=== PATIENT | female | born 1990 | race Caucasian/White ===

== ENCOUNTER 2020-10-16 08:20 | Inpatient (IN) | payer BC ==
[~2020-10-16] VITALS: Ht 154.9 cm; Wt 61.8 kg
[2020-10-16] MEDS ORDERED: BUSP30TA PO (08:29)
[2020-10-16] MEDS ORDERED: EFFE150C2 PO (08:29)
[2020-10-16 09:09] LABS: HEMATOCRIT 41.6 % (36.0-47.0); HEMOGLOBIN 13.7 g/dl (12.0-15.5); MEAN CORPUSCULAR HEMOGLOBIN 31.4 pg (27.0-33.0); MEAN CORPUSCULAR HGB CONC 32.9 g/dl (32.0-36.5); MEAN CORPUSCULAR VOLUME 95.2 fl (80.0-96.0); PLATELET COUNT, AUTOMATED 177 10^3/uL (150-450); RED BLOOD COUNT 4.37 10^6/uL (4.00-5.40); WHITE BLOOD COUNT 4.6 10^3/uL (4.0-10.0)
[2020-10-16 09:39] LABS: AMPHETAMINES LEVEL URINE NEGATIVE (NEGATIVE); BARBITURATES URINE NEGATIVE (NEGATIVE); BENZODIAZEPINES URINE NEGATIVE (NEGATIVE); CANNABINOIDS URINE NEGATIVE (NEGATIVE); COCAINE METABOLITE URINE NEGATIVE (NEGATIVE); METHADONE URINE NEGATIVE (NEGATIVE); OPIATES URINE NEGATIVE (NEGATIVE); PHENCYCLIDINE URINE NEGATIVE (NEGATIVE)
[2020-10-16 09:43] LABS: HCG, SERUM QUALITATIVE NEGATIVE (NEGATIVE)
[2020-10-16 09:48] LABS: ACETAMINOPHEN LEVEL < 2.0 UG/ML (10.0-30.0); ALBUMIN 4.2 GM/DL (3.2-5.2); ALT/SGPT 29 U/L (12-78); BILIRUBIN,DIRECT 0.2 MG/DL (0.0-0.2); BILIRUBIN,TOTAL 0.5 MG/DL (0.2-1.0); BLOOD UREA NITROGEN 11 MG/DL (7-18); CALCIUM LEVEL 9.3 MG/DL (8.5-10.1); CARBON DIOXIDE LEVEL 28 MEQ/L (21-32); CHLORIDE LEVEL 106 MEQ/L (98-107); CREATININE FOR GFR 0.67 MG/DL (0.55-1.30); ETHYL ALCOHOL (ETHANOL) < 0.003 % (0.000-0.010); GLOMERULAR FILTRATION RATE > 60.0 (>60); GLUCOSE, FASTING 77 MG/DL (70-100); POTASSIUM SERUM 3.8 MEQ/L (3.5-5.1); SALICYLATE LEVEL < 1.7 MG/DL (5.0-30.0); SODIUM LEVEL 139 MEQ/L (136-145); TOTAL PROTEIN 8.1 GM/DL (6.4-8.2)
[2020-10-16] MEDS ORDERED: MOM 30ML SUSPENSION UDC PO PRN (13:40)
[2020-10-16] MEDS ORDERED: traZODone 50 MG TAB PO PRN (13:40)
[2020-10-16] MEDS ORDERED: ACETAMINOPHEN TAB 650MG DOSE (2X325MG) PO PRN (13:40)
[2020-10-16] MEDS ORDERED: MAALOX 30 ML SUSP *UDC PO PRN (13:40)
[2020-10-16 14:51] LABS: RSV AMPLIFICATION NEGATIVE (NEGATIVE)
[2020-10-16] MEDS ORDERED: BUSP15TA47 PO (14:52)
[2020-10-16] MEDS ORDERED: HOME MED LIST COMPLETE! XX SCH (14:55)
[2020-10-16 16:21] VITALS: BP 100/59
[2020-10-16] MEDS: LORazepam 1 MG TAB PO PRN (18:10)
[2020-10-16] MEDS: risperiDONE 2 MG TAB PO SCH (21:16)
[2020-10-17 06:45] VITALS: BP 121/59
--- NOTE | 2020-10-17 10:18 | MHHPEPDOC ---
General Date Of Admission: Oct 16, 2020 Legal Status: 9.39 Chief Complaint I was a hearing voices telling me to "fast. I have been full of energy. ". History of Present Illness HISTORY OF THE PRESENT ILLNESS: Patient is a 30 -year-old , female, who [was diagnosed of major depression recently and has been taking antidepressant medicine of Effexor. Patient came to emergency room with her reporting that she is occasionally hearing man's voice telling her to hurry up and go fast. Patient stated that it has been going on for almost 2 months and is getting worse in the past 2 weeks. She stated that she is feeling quite positive, having increased energy ,sleeping only 3 to 4 hours at night but the voices are getting worse and she is feeling somewhat disturbed and agreed to come to the hospital for help. She denies any command hallucination and feels that the voices are from one of her uncles although she is not feeling threatened but she is disturbed and not getting much sleep and wants help. She stated that she was having significant depression but also had periods of increased energy for this past several years but only started to receive julieta atment the past few months after her depression got worse and was prescribed with Effexor which seems to have made her hallucination worse. She denies any history of suicidal attempt and denies any substance abuse issues]. Psychiatric Review of Systems Depression (2 or more weeks): insomnia/hypersomnia, decreased energy, difficulty concentrating, psychomotor changes Sharmila (4 or more days of): expansive mood, decreased need for sleep, still with energy, talkativity, pressured, goal-directed activities Psychosis: auditory hallucination PTSD: denies Anxiety: denies Past Psychiatric History Previous Psychiatric Diagnosis: . Major depression and anxiety Previous Psychiatric Admissions: . Was on Effexor Suicide Attempts: . No history of suicidal attempt Psychiatric Follow-up: . Started outpatient treatment 2 months ago Psychiatric medications: . Effexor Past Medical History Medical Problems No major medical history Head Injury: No Seizures: No Hospitalizations: No Surgeries: No Family Medical/Psychiatric HX Medical Problems Noncontributory Psychiatric Disorders: Yes (Patient's mother who 15 years ago had a OCD) Addiction: No Suicide Attemps/Completions: No Addiction History denies Social History Childhood: . Born in this area Abuse/Trauma:. Denies any history of abuse lives with her Current Living Situation: [With her ]. Education: [High school]. Employment: [Works at [employer]]. Social Support: []. Legal: [No legal history]. Marital: 1 month ago no child . Mental Status Examination General Appearance: appears stated age Build: average Demeanor: average Eye Contact: average Activity: average Behavior: cooperative Speech: clear, pressured, normal volume Mood: euphoric, hypomanic Mood Patient reports having full of energy but is distressed by the hallucinations Affect: full, congruent, anxious Thought Process: logical/linear, racing Thought Content (Delusions): other (No delusional thinking but hearing voices of unclear telling her to go fast) Thought Content (Other): none reported Thought Content (Aggressive): none reported Perception (Hallucinations): auditory Perception (Other): none reported Cognition (Impairment of): none reported Cognition(Intelligence Est.): average Oriented: Awake, Alert, Oriented times three Insight: fair Judgment: Fair Diagnoses Bipolar disorder type I manic A-FIB/CHADSVASC A-FIB History Current/History of A-Fib/PAF?: No Current PO Anticoag Therapy: No Age/Risk Factor Scoring CHADSVASC: CHADSVASC Response (Comments) Value Gender Risk Factor Female 1 Hx of CHF No 0 Hx of HTN No 0 Hx of Stroke/TIA/or VTE No 0 Hx of Diabetes No 0 Hx of Vascular Disease No 0 Total 1 Treatment Treatment ordered: NONE Assessment Patient appears to have a clear history of bipolar disorder in manic phase with auditory hallucination. She is willing to cooperate with the treatment and took risperidone last night and slept 9 hours and feels much better this morning. We will continue with the risperidone 2 mg at bedtime and consider mood stabilizer and continue with the supportive therapy and education. Initial Treatment Plan 1. Patient was admitted on a 9.39 status. 2. Complete history was obtained. 3. With patients permission, family will be contacted and database will be expanded. 4. Patients medication regimen will be reviewed and changed accordingly. 5. Patient will be provided with protected environment. 6. Patient will be treated with individual, group, and milieu therapies. 7. Patient will receive supportive psych-education. 8. Discharge planning will commence immediately. 9. Outpatient follow-up treatment will be strongly recommended. 10. The initial treatment plan will focus initially on: * Depression. * Risk for suicide. ESTIMATED LENGTH OF STAY: 5-7 DAYS. TIME SPENT COUNSELING AND COORDINATING INITIAL CARE: 45 minutes. Tobacco Cessation Screen If Patient is a Smoker Patient is a non-smoker N/A-No Antipsychotics Vital Signs Vital Signs Date Time Temp Pulse Resp B/P (MAP) Pulse Ox O2 Delivery O2 Flow Rate FiO2 10/17/20 06:45 98.5 114 18 121/59 (79) 96 Room Air Laboratory Data 24H Labs Laboratory Tests 2 10/16/20 13:57: Coronavirus (COVID-19)(PCR) NEGATIVE, Influenza Type A (RT-PCR) NEGATIVE, Influenza Type B (RT-PCR) NEGATIVE, Respiratory Syncytial Virus (PCR) NEGATIVE Medications Scheduled Venlafaxine HCl (Effexor Xr) 150 Mg Cap.er.24h, 150 MG PO DAILY, (Reported) Scheduled PRN Buspirone HCl (Buspirone HCl) 15 Mg Tablet, 15 MG PO BID PRN for ANXIETY, (Reported) Allergies Coded Allergies: Sulfa (Sulfonamide Antibiotics) (Verified Allergy, Intermediate, HIVES, 10/16/20) amoxicillin (Verified Allergy, Intermediate, HIVES, 10/16/20) FLAVIO MORAN M.D. Oct 17, 2020 10:18
[2020-10-17 16:33] VITALS: BP 113/62
--- NOTE | 2020-10-17 17:44 | HPEPDOC ---
[facility] Medical History & Physical Date of Admission Oct 16, 2020 Date of Service: Oct 17, 2020 History and Physical CHIEF COMPLAINT: Routine medical exam HISTORY OF PRESENT ILLNESS: 30-year-old female with prior history of depression admitted to the inpatient mental health unit with bipolar disorder and manic episode. Hospitalist was asked to do a routine medical exam. Patient denies any chest pain pressure tightness lightheadedness dizziness syncope dysuria urgency frequency flank pain fever chills polyphagia polyuria polydipsia sore throat changes in weight bowel habits sleep pattern she denies any bilateral upper or lower extremity weakness or paresthesias denies any changes in vision blurred vision diplopia decreased visual acuity sore throat ear discharge nasal congestion shortness of breath PAST MEDICAL HISTORY: Bipolar disorder Depression PAST SURGICAL HISTORY: None SOCIAL HISTORY: 1 month ago graduated from high school Works at [employer] full code denies smoking or alcohol use Urine tox screen positive for cannabinoids FAMILY HISTORY: Mother COPD/emphysema, previous tobacco smoker, OCD ALLERGIES: Please see below. REVIEW OF SYSTEMS: 10 point review of systems negative aside from positive findings in HPI HOME MEDICATIONS: Please see below. PHYSICAL EXAMINATION: VITAL SIGNS: See below GENERAL APPEARANCE: Awake alert oriented to person place and time no distress HEENT: No thyromegaly cervical lymphadenopathy moist mucous membranes CARDIOVASCULAR: S1-S2 regular rate rhythm LUNGS: Air entry is equal bilaterally clear to auscultation no wheezing rales or rhonchi ABDOMEN: Positive bowel sounds soft nontender nondistended no rebound or guarding EXTREMITIES: No cyanosis clubbing or pitting edema LABORATORY DATA: See below. ASSESSMENT: 30-year-old with history of depression admitted for bipolar disorder and manic episode with auditory hallucinations. . PLAN: Bipolar manic phase with auditory hallucinations-management per psychiatrist Hospitalist will sign off. Please re-consult for new acute medical issues Vital Signs Vital Signs Date Time Temp Pulse Resp B/P (MAP) Pulse Ox O2 Delivery O2 Flow Rate FiO2 10/17/20 06:45 98.5 114 18 121/59 (79) 96 Room Air Laboratory Data Labs 24H Laboratory Tests 2 10/16/20 13:57: Coronavirus (COVID-19)(PCR) NEGATIVE, Influenza Type A (RT-PCR) NEGATIVE, Influenza Type B (RT-PCR) NEGATIVE, Respiratory Syncytial Virus (PCR) NEGATIVE Home Medications Scheduled Venlafaxine HCl (Effexor Xr) 150 Mg Cap.er.24h, 150 MG PO DAILY Scheduled PRN Buspirone HCl (Buspirone HCl) 15 Mg Tablet, 15 MG PO BID PRN for ANXIETY Allergies Coded Allergies: Sulfa (Sulfonamide Antibiotics) (Verified Allergy, Intermediate, HIVES, 10/16/20) amoxicillin (Verified Allergy, Intermediate, HIVES, 10/16/20) A-FIB/CHADSVASC A-FIB History Current/History of A-Fib/PAF?: No Current PO Anticoag Therapy: No Age/Risk Factor Scoring CHADSVASC: CHADSVASC Response (Comments) Value Age Risk Factor Age < 65 years old 0 Gender Risk Factor Female 1 Hx of CHF No 0 Hx of HTN No 0 Hx of Stroke/TIA/or VTE No 0 Hx of Diabetes No 0 Hx of Vascular Disease No 0 Total 1 Treatment Treatment ordered: NONE BARBARA GOODSON MD Oct 17, 2020 10:45
[2020-10-17] MEDS: risperiDONE 2 MG TAB PO SCH (21:43)
[2020-10-18 05:34] VITALS: BP 128/76
--- NOTE | 2020-10-18 09:58 | MHIPNPDOC ---
[facility] Progress Note Progress Note DATE OF SERVICE: 10/18/20 Patient slept very well last night and is in no acute distress. She is tolerating risperidone with no complaint of side effect but stated that she is feeling a little drowsy this morning and was explained that drowsiness will lessen over time and is feeling relieved. She also states that she is not hearing the voices of unclear since yesterday and feeling less disturbed. She is in good control and denies any lethality issues and is willing to cooperate with the treatment. HISTORY:. VITAL SIGNS: See below. NEW TEST RESULTS:. CURRENT MEDICATIONS: See below. MENTAL STATUS EXAMINATION: Patient is a 30-year old female, who is cooperative. Speech: Is rational. Language skills are good. Thought processes including: Relevant. Thought content: Denies any new problems. Abstract reasoning, and computation:. Description of associations: Organized. Description of abnormal or psychotic thoughts: Claims that she is not hearing voices as much. Judgment: Fair. Insight fair]. Orientation: Oriented. Recent and remote memory: No impairment. Attention span and concentration: Fair. Language:. Fund of knowledge:. Mood: Moderately anxious. Affect: Appropriate slightly elevated. DIAGNOSES: 1.. Bipolar disorder manic 2.. 3.. ASSESSMENT: Tolerating medicine and showing some improvement MANAGEMENT PLAN: Continue with the risperidone and supportive therapy. TIME SPENT: 15 minutes. Vital Signs Vital Signs Date Time Temp Pulse Resp B/P (MAP) Pulse Ox O2 Delivery O2 Flow Rate FiO2 10/18/20 05:34 97.3 82 16 128/76 (93) 98 Room Air Current Medications Current Medications Medications (Trade) Dose Ordered Sig/Aracelis Route PRN Reason Start Time Stop Time Status Last Admin Dose Admin Acetaminophen (Tylenol Tab) 650 mg Q6HP PRN PO HEADACHE or MILD DISCOMFORT 10/16/20 13:40 Al Hydrox/Mg Hydrox/Simethicone (Mylanta) 30 ml Q4HP PRN PO HEARTBURN/INDIGESTION 10/16/20 13:40 Home Med (Home Med List Complete!) ASDIRECTED XX 10/16/20 14:55 10/16/20 15:02 DC Lorazepam (Ativan) 1 mg Q6HP PRN PO ANXIETY/AGITATION 10/16/20 13:40 10/16/20 18:10 Magnesium Hydroxide (Milk Of Magnesia) 30 ml DAILYPRN PRN PO CONSTIPATION 10/16/20 13:40 Risperidone (RisperDAL) 2 mg QHS PO 10/16/20 21:00 10/17/20 21:43 Trazodone HCl (Desyrel) 50 mg QHSP PRN PO INSOMNIA 10/16/20 13:40 Allergies Coded Allergies: Sulfa (Sulfonamide Antibiotics) (Verified Allergy, Intermediate, HIVES, 10/16/20) amoxicillin (Verified Allergy, Intermediate, HIVES, 10/16/20) FLAVIO MORAN M.D. Oct 18, 2020 09:58
[2020-10-18 16:30] VITALS: BP 126/80
[2020-10-18] MEDS: risperiDONE 2 MG TAB PO SCH (21:25)
[2020-10-19 07:37] VITALS: BP 133/76
[2020-10-19] MEDS: LORazepam 1 MG TAB PO PRN (12:35)
[2020-10-19] MEDS ORDERED: RISP-9 PO (13:03)
--- NOTE | 2020-10-19 15:08 | MHIPNPDOC ---
[facility] Progress Note Progress Note DATE OF SERVICE: 10/19/20 HISTORY: Patient is a 30 -year-old , female, who [was diagnosed of major depression recently and has been taking antidepressant medicine of Effexor. Patient came to emergency room with her reporting that she is occasionally hearing man's voice telling her to hurry up and go fast. Patient stated that it has been going on for almost 2 months and is getting worse in the past 2 weeks. She stated that she is feeling quite positive, having increased energy ,sleeping only 3 to 4 hours at night but the voices are getting worse and she is feeling somewhat disturbed and agreed to come to the hospital for help. She denies any command hallucination and feels that the voices are from one of her uncles although she is not feeling threatened but she is disturbed and not getting much sleep and wants help. She stated that she was having significant depression but also had periods of increased energy for this past several years but only started to receive treatment the past few months after her depression got worse and was prescribed with Effexor which seems to have made her hallucination worse. She denies any history of suicidal attempt and denies any substance abuse issues]. VITAL SIGNS: See below. CURRENT MEDICATIONS: See below. MENTAL STATUS EXAMINATION: Patient is a 30 -year-old , female, who was reporting auditory hallucinations and hypomanic behaviors Speech: Is fluid, conversant, normal rate, tone and volume Language skills are intact Thought processes including: linear and goal oriented Thought content: denies depression and anxiety. Denies suicidal/homicidal ideation, planning or intent. Abstract reasoning, and computation: fair Description of associations: denies, none observed Description of abnormal or psychotic thoughts: denies, none observed. Judgment: fair Insight: fair Orientation: alert and oriented to person, place, time and situation Recent and remote memory: intact Attention span and concentration: good Language: expansive Fund of knowledge: average Mood: Euthymic Mood Affect: reactive DIAGNOSES: Bipolar disorder type I manic ASSESSMENT: Patient reports that she was having a hypomanic episode with auditory hallucinations. In today's meeting, she reports no edwige, hypomanic, no depression or anxiety, no suicidal or homicidal ideations, planning or intent. She feels that the increase in Effexor was recently increased to 150 mg. As patient is not observed to have any abnormal psychotic symptoms and is not suicidal or homicidal, she will be discharged tomorrow. I have discussed with her the possibility of a mood stabilizer which requires further observation, she declined to be converted to voluntary status for this medication and wants to be discharged to home. MANAGEMENT PLAN: Continue all medications and supportive therapy, discharge tomorrow TIME SPENT: 25 minutes. Vital Signs Vital Signs Date Time Temp Pulse Resp B/P (MAP) Pulse Ox O2 Delivery O2 Flow Rate FiO2 10/19/20 07:37 98.8 104 16 133/76 (95) 100 Room Air Current Medications Current Medications Medications (Trade) Dose Ordered Sig/Aracelis Route PRN Reason Start Time Stop Time Status Last Admin Dose Admin Acetaminophen (Tylenol Tab) 650 mg Q6HP PRN PO HEADACHE or MILD DISCOMFORT 10/16/20 13:40 Al Hydrox/Mg Hydrox/Simethicone (Mylanta) 30 ml Q4HP PRN PO HEARTBURN/INDIGESTION 10/16/20 13:40 10/18/20 17:49 Home Med (Home Med List Complete!) ASDIRECTED XX 10/16/20 14:55 10/16/20 15:02 DC Lorazepam (Ativan) 1 mg Q6HP PRN PO ANXIETY/AGITATION 10/16/20 13:40 10/19/20 12:35 Magnesium Hydroxide (Milk Of Magnesia) 30 ml DAILYPRN PRN PO CONSTIPATION 10/16/20 13:40 Risperidone (RisperDAL) 2 mg QHS PO 10/16/20 21:00 10/18/20 21:25 Trazodone HCl (Desyrel) 50 mg QHSP PRN PO INSOMNIA 10/16/20 13:40 Allergies Coded Allergies: Sulfa (Sulfonamide Antibiotics) (Verified Allergy, Intermediate, HIVES, 10/16/20) amoxicillin (Verified Allergy, Intermediate, HIVES, 10/16/20) NARCISO JOHNSON NP Oct 19, 2020 15:08
[2020-10-19 16:24] VITALS: BP 119/66
[2020-10-19] MEDS: risperiDONE 2 MG TAB PO SCH (22:01)
[2020-10-20 07:00] VITALS: BP 137/74
[2020-10-20 07:34] LABS: CHOLESTEROL RISK RATIO 2.712 (<5)
--- NOTE | 2020-10-20 12:20 | MHDSPDOC ---
[facility] [place] Discharge Summary DATE OF ADMISSION: Oct 16, 2020 at 13:38 DATE OF DISCHARGE: Oct 20, 2020 at 10:56 DISCHARGE DIAGNOSES: Bipolar disorder type I manic REASON FOR ADMISSION: Patient is a 30 -year-old , , female, who [was diagnosed of major depression recently and has been taking antidepressant medicine of Effexor. Patient came to emergency room with her reporting that she is occasionally hearing man's voice telling her to hurry up and go fast. Patient stated that it has been going on for almost 2 months and is getting worse in the past 2 weeks. She stated that she is feeling quite positive, having increased energy ,sleeping only 3 to 4 hours at night but the voices are getting worse and she is feeling somewhat disturbed and agreed to come to the hospital for help. She denies any command hallucination and feels that the voices are from one of her uncles although she is not feeling thre atened but she is disturbed and not getting much sleep and wants help. She stated that she was having significant depression but also had periods of increased energy for this past several years but only started to receive treatment the past few months after her depression got worse and was prescribed with Effexor which seems to have made her hallucination worse. She denies any history of suicidal attempt and denies any substance abuse issues]. VITAL SIGNS: See below. CONSULTANTS INVOLVED: See Medical H + P by Hospitalist TREATMENT AND PROGRESS ON THE UNIT: Patient was admitted to the [facility] on a 9.39 legal status he was afforded the following treatment modalities: 1) Individual Therapy 2) Group Therapy 3) Medication Management 4) Milieu Therapy 5) Safe Environment HOSPITAL COURSE: Patient was admitted to [facility] on a 9.39 legal status. She was started on risperidone 2 mg at bedtime and there was a consideration to add a mood stabilizer along with providing supportive therapy and education. Pt found medications beneficial and tolerated them well. Mood, anxiety, and intrusive thoughts improved with treatment. Pt attended groups daily during stay. Pts symptoms improved with treatment. On day of discharge she denied depression, anxiety, insomnia, SI/HI, hallucinations, delusions. Pt was discharged home with follow-[facility]. Pt felt safe for discharge. She feels that the increase in Effexor was to 150 mg made her manic. This was discontinued on discharge. As patient is not observed to have any abnormal psychotic symptoms and is not suicidal or homicidal, she is discharged today. I have discussed again with the pt needing a mood stabilizer which requires further observation, she declined to be converted to voluntary status for this medication and wants to be discharged to home. DISCHARGE ASSESSMENT: In today's interview, patient is alert and oriented, pts dress is appropriate. Hygiene and grooming is well-kempt. Smiles on approach and is pleasant and en gaged in the interview. Denies depression and anxiety. Denies suicidal and homicidal ideation, planning or intent. Denies and is not observed with edwige, psychotic symptoms of delusions, bizarre thinking, obsessions, paranoia, ruminations illogical thoughts, flight of ideas or having poor insight and judgement. Patient has normal mentation, declines further hospitalization on a voluntary status and meets criteria for discharge today. Patient encouraged to return to hospital if symptoms worsen or change and encouraged to call unit if he/she/they needs to speak to provider for questions regarding medications or care. MENTAL STATUS EXAMINATION ON DISCHARGE: Patient is a 30 -year-old , , female, who [was diagnosed of major depression recently and has been taking antidepressant medicine of Effexor and now reporting manic behaviors and complaining of auditory hallucinations Speech: Is fluid, conversant, normal rate, tone and volume Language skills are intact Thought processes including: linear and goal oriented Thought content: denies depression and anxiety. Denies suicidal/homicidal ideation, planning or intent. Abstract reasoning, and computation: fair Description of associations: denies, none observed Description of abnormal or psychotic thoughts: denies, none observed. Judgment: fair Insight: fair Orientation: alert and oriented to person, place, time and situation Recent and remote memory: intact Attention span and concentration: good Language: expansive Fund of knowledge: average Mood: Euthymic Mood Affect: reactive MEDICATIONS ON DISCHARGE: See Medication Reconciliation PLAN/FOLLOWUP ARRANGEMENTS: Patient is being discharged to home with follow up at [facility] The amount of time spent in the coordination of care for this patient was approximately 25 minutes. ETOH/Disorder Med Rx ETOH/DRUG DISORDER RX: N/A Vital Signs/I&Os Vital Signs Date Time Temp Pulse Resp B/P (MAP) Pulse Ox O2 Delivery O2 Flow Rate FiO2 10/20/20 07:00 98.1 98 18 137/74 (95) 99 Room Air Laboratory Data Labs 24H Laboratory Tests 2 10/20/20 06:31: Triglycerides Level 55, Total Cholesterol 198, LDL Cholesterol 114H, Non-HDL Cholesterol (LDL + VLDL) 125, Total HDL Cholesterol 73, Cholesterol/HDL Ratio 2.712 Medications Scheduled Risperidone (Risperidone) 2 Mg Tablet, 2 MG PO QHS for Antipsychotic, #7 Scheduled PRN Buspirone HCl (Buspirone HCl) 15 Mg Tablet, 15 MG PO BID PRN for ANXIETY, (Reported) Allergies Coded Allergies: Sulfa (Sulfonamide Antibiotics) (Verified Allergy, Intermediate, HIVES, 10/16/20) amoxicillin (Verified Allergy, Intermediate, HIVES, 10/16/20) NARCISO JOHNSON NP Oct 20, 2020 12:20
== END 2020-10-20 10:56 | disposition home or self-care (01) | DRG 753 ==
LOC: M ED 08:20 → M ED INP 13:38 → M PSY 15:38
PROVIDERS: ADMIT Psychiatry & Neurology Psychiatry; ATTEND Psychiatry & Neurology Psychiatry
DX: F31.9 Bipolar disorder, unspecified (principal); Z20.822 Contact with and (suspected) exposure to COVID-19; Z81.8 Family history of other mental and behavioral disorders; Z79.899 Other long term (current) drug therapy; Z88.0 Allergy status to penicillin; Z88.2 Allergy status to sulfonamides

== ENCOUNTER → 2022-03-17 | Outpatient (CLI) | payer BC ==
[~2022-03-17] MED LIST: BUSP15TA47 PO; BUSP30TA PO; EFFE150C2 PO; RISP-9 PO
[2022-03-17 15:19] LABS: HEMATOCRIT 37.2 % (36.0-47.0); MEAN CORPUSCULAR HEMOGLOBIN 31.3 pg (27.0-33.0); MEAN CORPUSCULAR HGB CONC 32.3 g/dl (32.0-36.5); MEAN CORPUSCULAR VOLUME 97.1 fl (80.0-96.0); PLATELET COUNT, AUTOMATED 145 10^3/uL (150-450); RED BLOOD COUNT 3.83 10^6/uL (4.00-5.40); WHITE BLOOD COUNT 15.6 10^3/uL (4.0-10.0)
[2022-03-17 16:35] LABS: GC DNA AMPLIFICATION NEGATIVE (NEGATIVE)
== END ==
LOC: M PLALAB 12:31
PROVIDERS: ATTEND Specialist
DX: Z34.03 Encounter for supervision of normal first pregnancy, third trimester (principal)

== ENCOUNTER → 2022-03-28 | Outpatient (CLI) | payer OTHER | LOC: M LAB 07:25 | PROVIDERS: ATTEND Obstetrics & Gynecology | DX: R73.09 Other abnormal glucose (principal) ==

== ENCOUNTER → 2022-04-14 | Outpatient (REF) | payer OTHER | LOC: M SFHCWAGY 17:02 | PROVIDERS: ATTEND Advanced Practice Midwife | DX: O99.113 Other diseases of the blood and blood-forming organs and certain disorders involving the immune mechanism complicating pregnancy, third trimester (principal) ==

== ENCOUNTER 2022-05-04 06:36 | Inpatient (IN) | payer OTHER ==
[2022-05-04] VITALS (9 sets, daily range): BP systolic 106–146; BP diastolic 60–95
[~2022-05-04] VITALS: Ht 154.9 cm; Wt 73.4 kg
[2022-05-04] MEDS: PRENATAL VITAMINS CHEWABLE TABLET PO SCH (09:00)
[2022-05-04] MEDS ORDERED: ZOLO25TA PO (09:27)
[2022-05-04] MEDS ORDERED: LACTATED RINGER'S 1000 ML IV STA (09:35)
[2022-05-04] MEDS ORDERED: BICITRA 30ML SOLN UDC PO ONE (09:35)
[2022-05-04] MEDS ORDERED: METHYLERGONOVINE MALEATE 0.2MG/ML 1ML VIAL IM PRN (09:35)
[2022-05-04] MEDS ORDERED: OXYTOCIN INJ 10UNITS/ML 1ML VIAL IM PRN (09:35)
[2022-05-04] MEDS ORDERED: CLINDAMYCIN 900 MG in IV 1 EA IV ONE (09:35)
[2022-05-04] MEDS ORDERED: OXYTOCIN DRIP 30 UNITS in IV 1 EA IV PRN ×4 (09:35)
[2022-05-04] MEDS ORDERED: AZITHROMYCIN INJ 500 MG, VIAL MATE ADAPTER 1 EACH in NS 250 ML IV ONE ×2 (09:35→11:10)
[2022-05-04] MEDS ORDERED: TRANEXAMIC ACID INJection 1,000 MG in NS 100 ML IV PRN (09:35)
[2022-05-04] MEDS: LR 1,000 ML IV SCH ×2 (09:35→17:35)
[2022-05-04] MEDS ORDERED: CARBOPROST TROMETHAMINE 250 MCG/ML AMP IM PRN (09:35)
[2022-05-04 10:07] LABS: HEMATOCRIT 35.9 % (36.0-47.0); HEMOGLOBIN 11.4 g/dl (12.0-15.5); MEAN CORPUSCULAR HEMOGLOBIN 29.1 pg (27.0-33.0); MEAN CORPUSCULAR HGB CONC 31.8 g/dl (32.0-36.5); MEAN CORPUSCULAR VOLUME 91.6 fl (80.0-96.0); PLATELET COUNT, AUTOMATED 131 10^3/uL (150-450); RED BLOOD COUNT 3.92 10^6/uL (4.00-5.40); WHITE BLOOD COUNT 11.1 10^3/uL (4.0-10.0)
[2022-05-04] MEDS ORDERED: GENTAMICIN 370 MG in D5W 100 ML IV ONE (11:00)
[2022-05-04] MEDS ORDERED: MORPHINE PRES-FREE INJ 10 MG/10 ML VIAL As Ordered ONE (11:05)
[2022-05-04] MEDS ORDERED: AZITHROMYCIN INJ 500MG VIAL As Ordered ONE (11:16)
[2022-05-04] MEDS ORDERED: ONDANSETRON 4MG 2ML VIAL As Ordered ONE (11:36)
[2022-05-04] MEDS ORDERED: OXYTOCIN 30UNITS IN 0.9% NaCl 500ML IV BAG As Ordered ONE ×2 (11:47→13:27)
[2022-05-04] MEDS ORDERED: ACETAMINOPHEN 1000MG 100ML IV BAG As Ordered ONE (12:11)
[2022-05-04] MEDS ORDERED: KETOROLAC 60MG 2ML VIAL As Ordered ONE (12:13)
[2022-05-04] MEDS ORDERED: oxyCODONE 5MG TAB PO PRN ×2 (12:45)
[2022-05-04] MEDS ORDERED: RHOGAM 300MCG (1500IU) INJ IM SCH (12:45)
[2022-05-04] MEDS ORDERED: OXYTOCIN DRIP 30 UNITS in IV 1 EA IV SCH (12:45)
[2022-05-04] MEDS ORDERED: ACETAMINOPHEN 500 MG TAB PO PRN (12:45)
[2022-05-04] MEDS ORDERED: METHYLERGONOVINE MALEATE 0.2 MG TAB PO PRN (12:45)
[2022-05-04] MEDS ORDERED: SIMETHICONE 80MG CHEW TAB PO PRN (12:45)
[2022-05-04] MEDS ORDERED: ONDANSETRON 4MG 2ML VIAL IV PRN ×2 (12:45→13:10)
[2022-05-04] MEDS: SLF 3 ML SYR IV SCH ×2 (13:10→20:55)
[2022-05-04] MEDS ORDERED: NALOXONE INJ 0.4MG/1ML VIAL IV PRN ×2 (13:10)
[2022-05-04] MEDS ORDERED: diphenhydrAMINE 50MG/ML VIAL IV PRN (13:10)
[2022-05-04] MEDS ORDERED: LR 1,000 ML IV SCH (13:10)
[2022-05-04] MEDS ORDERED: NALBUPHINE HCL 10 MG/ML 1ML AMP IV PRN (13:10)
[2022-05-04] MEDS ORDERED: MORPHINE 2 MG/ML 1ML VIAL IV PRN (13:10)
[2022-05-04] MEDS ORDERED: **NOTE PATIENT COMMENT** MISC XX SCH (13:10)
[2022-05-04] MEDS: KETOROLAC 30 MG/ML 1ML VIAL IV SCH (19:01)
[2022-05-04] MEDS: DOCUSATE SODIUM 100MG CAPSULE PO SCH (20:07)
[2022-05-04] MEDS ORDERED: METHYLERGONOVINE MALEATE 0.2MG/ML 1ML VIAL ONE (21:24)
[2022-05-05] MEDS: SERTRALINE HCL 25 MG TABLET PO SCH ×2 (00:39→21:07)
[2022-05-05] MEDS: KETOROLAC 30 MG/ML 1ML VIAL IV SCH ×2 (00:39→06:37)
[2022-05-05 02:00] VITALS: BP 98/57
[2022-05-05] MEDS: LR 1,000 ML IV SCH ×3 (02:09→17:35)
[2022-05-05] MEDS: SLF 3 ML SYR IV SCH (05:10)
[2022-05-05 06:00] VITALS: BP 102/58
[2022-05-05 06:07] LABS: HEMATOCRIT 27.1 % (36.0-47.0); MEAN CORPUSCULAR HEMOGLOBIN 29.8 pg (27.0-33.0); MEAN CORPUSCULAR HGB CONC 32.1 g/dl (32.0-36.5); MEAN CORPUSCULAR VOLUME 92.8 fl (80.0-96.0); PLATELET COUNT, AUTOMATED 100 10^3/uL (150-450); RED BLOOD COUNT 2.92 10^6/uL (4.00-5.40); WHITE BLOOD COUNT 12.2 10^3/uL (4.0-10.0)
[2022-05-05 06:12] LABS: HEMOGLOBIN 8.7 g/dl (12.0-15.5)
[2022-05-05] MEDS: DOCUSATE SODIUM 100MG CAPSULE PO SCH ×2 (08:07→21:07)
[2022-05-05] MEDS: PRENATAL VITAMINS CHEWABLE TABLET PO SCH (08:07)
[2022-05-05 10:00] VITALS: BP 113/63
[2022-05-05] MEDS ORDERED: COLA100C5 PO (10:34)
[2022-05-05] MEDS ORDERED: ACET-683 PO (10:34)
[2022-05-05] MEDS ORDERED: OXYC-517 PO (10:34)
[2022-05-05 14:00] VITALS: BP 110/57
[2022-05-05] MEDS: IBUPROFEN 800 MG TAB PO SCH ×2 (14:40→22:30)
[2022-05-05 18:00] VITALS: BP 116/65
[2022-05-05] MEDS: ACETAMINOPHEN TAB 650MG DOSE (2X325MG) PO PRN (18:03)
[2022-05-05 22:02] VITALS: BP 114/64
[2022-05-06] MEDS: LR 1,000 ML IV SCH (01:35)
[2022-05-06 02:01] VITALS: BP 121/66
[2022-05-06 06:13] VITALS: BP 153/64
[2022-05-06] MEDS: IBUPROFEN 800 MG TAB PO SCH (06:30)
[2022-05-06] MEDS ORDERED: MEASLES,MUMPS,RUBELLA VACCINE INJ (MMR-II) SC.IMMUN ONE (09:00)
[2022-05-06] MEDS: PRENATAL VITAMINS CHEWABLE TABLET PO SCH (09:34)
[2022-05-06] MEDS: ACETAMINOPHEN TAB 650MG DOSE (2X325MG) PO PRN (09:34)
[2022-05-06] MEDS: DOCUSATE SODIUM 100MG CAPSULE PO SCH (09:35)
[2022-05-06 10:00] VITALS: BP 130/81
== END 2022-05-06 13:05 | disposition home or self-care (01) | DRG 540 ==
LOC: M LDO 06:36 → M LDI 09:20 → M OBS 14:25
PROVIDERS: ADMIT Advanced Practice Midwife; ATTEND Obstetrics & Gynecology
PROC: 10D00Z1 Extraction of Products of Conception, Low, Open Approach (ICD-10-PCS; principal; 2022-05-04 11:18)
DX: O32.1XX0 Maternal care for breech presentation, not applicable or unspecified (principal); O99.42 Diseases of the circulatory system complicating childbirth; D69.6 Thrombocytopenia, unspecified; O99.12 Other diseases of the blood and blood-forming organs and certain disorders involving the immune mechanism complicating childbirth; I73.00 Raynaud's syndrome without gangrene; O99.344 Other mental disorders complicating childbirth; O75.82 Onset (spontaneous) of labor after 37 completed weeks of gestation but before 39 completed weeks gestation, with delivery by (planned) cesarean section; Z3A.38 38 weeks gestation of pregnancy; Z37.0 Single live birth; F41.9 Anxiety disorder, unspecified; F31.9 Bipolar disorder, unspecified; Z88.0 Allergy status to penicillin; Z88.2 Allergy status to sulfonamides

== ENCOUNTER → 2022-10-12 | Outpatient (REF) | payer OTHER ==
[~2022-10-12] MED LIST changes: +ACET-683 PO; +COLA100C5 PO; +OXYC-517 PO; +ZOLO25TA PO
== END ==
LOC: M PLALAB 11:34
PROVIDERS: ATTEND Obstetrics & Gynecology
DX: Z12.4 Encounter for screening for malignant neoplasm of cervix (principal)
CPT/HCPCS: 87624; G0123